=== PATIENT | male | born 1945 | race African-American/Black ===

== ENCOUNTER 2017-06-21 23:49 | Emergency (ER) | payer OTHER ==
[~2017-06-21] VITALS: Ht 180.3 cm; Wt 95.9 kg
[2017-06-22 00:01] VITALS: BP 145/94
== END 2017-06-22 04:07 | disposition left against medical advice (07) ==
LOC: ER 23:49
DX: R06.02 Shortness of breath (principal); Z53.21 Procedure and treatment not carried out due to patient leaving prior to being seen by health care provider

== ENCOUNTER 2018-12-11 22:50 | Emergency (ER) | payer OTHER ==
[~2018-12-11] VITALS: Ht 180.3 cm; Wt 104.0 kg
[2018-12-12] MEDS ORDERED: KETOROLAC 60MG/2ML VIAL IM ONE (01:00)
[2018-12-12 02:03] VITALS: BP 134/88
== END 2018-12-12 02:05 | disposition home or self-care (01) ==
LOC: ER 22:50
DX: M25.512 Pain in left shoulder (principal); M19.90 Unspecified osteoarthritis, unspecified site; E11.9 Type 2 diabetes mellitus without complications; I51.9 Heart disease, unspecified; N40.0 Benign prostatic hyperplasia without lower urinary tract symptoms; F17.210 Nicotine dependence, cigarettes, uncomplicated; Z71.6 Tobacco abuse counseling
CPT/HCPCS: 73030; 93005; 96372; 99283; 99406; J1885

== ENCOUNTER 2021-03-15 16:15 | Emergency (ER) | payer BC, OTHER ==
[~2021-03-15] VITALS: Ht 182.9 cm; Wt 100.0 kg
[2021-03-15 17:38] LABS: BASOPHILS % 0.5 % (0.0-2.0); EOSINOPHILS % 0.1 % (0.0-5.0); HEMATOCRIT. 43.8 % (42.0-52.0); HEMOGLOBIN. 15.3 g/dL (14.0-18.0); LYMPHOCYTES % 13.5 % (20.0-50.0); MEAN CORPUSCULAR HEMOGLOBIN 31.6 pg (28.0-32.0); MEAN CORPUSCULAR VOLUME 90.6 fL (80.0-94.0); MEAN PLATELET VOLUME 9.7 fl (7.4-10.4); MONOCYTES % 8.5 % (2.0-8.0); NEUTROPHILS % 77.4 % (40.0-76.0); PLATELET 114 x1000/uL (130-400); RED BLOOD CELL COUNT 4.84 mill/uL (4.7-6.1); RED CELL DISTRIBUTION WIDTH 13.3 % (11.6-14.6)
[2021-03-15 17:44] LABS: CHLORIDE 103 mEq/L (98-107)
[2021-03-15] MEDS ORDERED: MORPHINE SULFATE 4 MG/ML CPJ (NOT FOR IM USE) IV ONE (19:00)
[2021-03-15 22:40] VITALS: BP 144/90
== END 2021-03-15 22:55 | disposition short-term general hospital (02) ==
LOC: ER 16:15
DX: R07.89 Other chest pain (principal); R51.9 Headache, unspecified; M54.9 Dorsalgia, unspecified
CPT/HCPCS: 36415; 70450; 71045; 72125; 72131; 80053; 82962; 83880; 84484; 85025; 93005; 99285; J2270

== ENCOUNTER 2021-05-18 12:47 | Emergency (ER) | payer OTHER ==
[~2021-05-18] VITALS: Ht 177.8 cm; Wt 87.0 kg
[~2021-05-18 12:47] MED LIST: FURO-151 MT; LEVO500T89 MT
[2021-05-18 17:13] LABS: BASOPHILS % 0.7 % (0.0-2.0); EOSINOPHILS % 1.9 % (0.0-5.0); HEMATOCRIT. 33.8 % (42.0-52.0); HEMOGLOBIN. 11.4 g/dL (14.0-18.0); LYMPHOCYTES % 36.5 % (20.0-50.0); MEAN CORPUSCULAR HEMOGLOBIN 31.2 pg (28.0-32.0); MEAN CORPUSCULAR VOLUME 92.3 fL (80.0-94.0); MEAN PLATELET VOLUME 8.3 fl (7.4-10.4); NEUTROPHILS % 48.9 % (40.0-76.0); PLATELET 102 x1000/uL (130-400); RED BLOOD CELL COUNT 3.66 mill/uL (4.7-6.1); RED CELL DISTRIBUTION WIDTH 14.6 % (11.6-14.6)
[2021-05-18 17:20] LABS: CHLORIDE 105 mEq/L (98-107)
[2021-05-18] MEDS ORDERED: FUROSEMIDE 40MG/4ML VIAL IVP NR (19:30)
[2021-05-18] MEDS ORDERED: ACETAMINOPHEN 500MG TABLET PO ONE (22:15)
[2021-05-18 22:31] VITALS: BP 127/81
== END 2021-05-18 22:31 | disposition short-term general hospital (02) ==
LOC: ER 12:47 → EDBEDREQTM 17:19 → ER 22:31 → CANBEDREQ 05-19 01:22
DX: I11.0 Hypertensive heart disease with heart failure (principal); I50.9 Heart failure, unspecified; R22.43 Localized swelling, mass and lump, lower limb, bilateral; E11.9 Type 2 diabetes mellitus without complications; I25.10 Atherosclerotic heart disease of native coronary artery without angina pectoris; N40.0 Benign prostatic hyperplasia without lower urinary tract symptoms; Z95.2 Presence of prosthetic heart valve; Z95.1 Presence of aortocoronary bypass graft
CPT/HCPCS: 36415; 71045; 80053; 83880; 84484; 85025; 93005; 93970; 96374; 99285; J1940

== ENCOUNTER 2022-02-06 08:23 | Inpatient (IN) | payer OTHER ==
[~2022-02-06] VITALS: Ht 177.8 cm; Wt 87.5 kg
[~2022-02-06 08:23] MED LIST changes: -LEVO500T89 MT; +LEVO500T90 MT
[2022-02-06 09:47] LABS: BASOPHILS % 0.4 % (0.0-2.0); EOSINOPHILS % 1.3 % (0.0-5.0); HEMATOCRIT. 36.5 % (42.0-52.0); HEMOGLOBIN. 12.5 g/dL (14.0-18.0); LYMPHOCYTES % 22.2 % (20.0-50.0); MEAN CORPUSCULAR HEMOGLOBIN 31.2 pg (28.0-32.0); MEAN CORPUSCULAR VOLUME 91.3 fL (80.0-94.0); MEAN PLATELET VOLUME 8.5 fl (7.4-10.4); NEUTROPHILS % 66.1 % (40.0-76.0); PLATELET 138 x1000/uL (130-400); RED CELL DISTRIBUTION WIDTH 13.3 % (11.6-14.6)
[2022-02-06 09:49] LABS: CHLORIDE 101 mEq/L (98-107); PROTHROMBIN TIME 11.2 sec (9.6-11.0)
[2022-02-06 11:17] LABS: CLARITY URINE CLEAR (CLEAR); COLOR URINE YELLOW (YELLOW); KETONES URINE TRACE (NEGATIVE); LEUKOCYTE ESTERASE URINE TRACE (NEGATIVE); NITRITE URINE NEGATIVE (NEGATIVE); OCCULT BLOOD URINE NEGATIVE (NEGATIVE); PH URINE 6.5 (4.5-8.0); PROTEIN URINE TRACE (NEGATIVE); SPECIFIC GRAVITY URINE 1.022 (1.005-1.030)
[2022-02-06 16:38] VITALS: BP 139/78
[2022-02-06] MEDS ORDERED: ACETAMINOPHEN 325MG TABLET PO PRN (17:30)
[2022-02-06] MEDS ORDERED: ONDANSETRON HCL 4MG/2ML INJ IV PRN (17:30)
[2022-02-06] MEDS ORDERED: IPRATROPIUM/ALBUTEROL 0.5-3(2.5)MG/3ML NEB HHN PRN (17:30)
[2022-02-06] MEDS ORDERED: NALOXONE HCL 0.4MG/ML VIAL IV PRN (17:45)
[2022-02-06] MEDS ORDERED: GABA-529 PO (19:58)
[2022-02-06] MEDS ORDERED: FAMO20TA8 PO (19:58)
[2022-02-06] MEDS ORDERED: INSU100I13 SQ (19:58)
[2022-02-06] MEDS ORDERED: TAMS-11 PO (19:58)
[2022-02-06] MEDS ORDERED: CARB-299 PO (19:58)
[2022-02-06] MEDS ORDERED: HYDR-4001 PO (19:58)
[2022-02-06] MEDS ORDERED: METF-414 PO (19:58)
[2022-02-06] MEDS ORDERED: POTA-79 PO (19:58)
[2022-02-06 20:00] VITALS: BP 112/59
[2022-02-06] MEDS ORDERED: DEXTROSE 50% WATER 50ML SYRINGE IV PRN (20:15)
[2022-02-06] MEDS: TAMSULOSIN HCL 0.4MG SR CAPSULE PO SCH (21:12)
[2022-02-06] MEDS: HYDROCODONE/ACETAMINOPHEN 5/325MG TABLET PO PRN (21:13)
[2022-02-06] MEDS: CARBIDOPA/LEVODOPA 25/100MG TABLET PO SCH (21:15)
[2022-02-06] MEDS: BLOOD SUGAR DIAGNOSTIC STRIP TEST SCH (21:15)
[2022-02-06] MEDS: INSULIN LISPRO 100 UNITS/ML SUBCUT SCH (21:15)
[2022-02-07] VITALS: BP 91/54
[2022-02-07 04:00] VITALS: BP 127/78
[2022-02-07] MEDS: INSULIN LISPRO 100 UNITS/ML SUBCUT SCH ×4 (06:16→20:51)
[2022-02-07] MEDS: BLOOD SUGAR DIAGNOSTIC STRIP TEST SCH ×4 (06:17→20:52)
[2022-02-07 06:30] LABS: BASOPHILS % 0.5 % (0.0-2.0); EOSINOPHILS % 2.5 % (0.0-5.0); HEMATOCRIT. 33.1 % (42.0-52.0); HEMOGLOBIN. 11.9 g/dL (14.0-18.0); LYMPHOCYTES % 26.4 % (20.0-50.0); MEAN CORPUSCULAR HEMOGLOBIN 31.6 pg (28.0-32.0); MEAN CORPUSCULAR VOLUME 88.1 fL (80.0-94.0); MONOCYTES % 12.1 % (2.0-8.0); NEUTROPHILS % 58.5 % (40.0-76.0); PLATELET 127 x1000/uL (130-400); RED BLOOD CELL COUNT 3.75 mill/uL (4.7-6.1); RED CELL DISTRIBUTION WIDTH 13.4 % (11.6-14.6)
[2022-02-07 06:31] LABS: CHLORIDE 104 mEq/L (98-107)
[2022-02-07 06:52] LABS: CREATINE KINASE 86 IU/L (39-308); HDL CHOLESTEROL 31 mg/dL (40-59); LDL CHOLESTEROL 90 mg/dL (5-100); T4 FREE 0.91 ng/dL (0.76-1.46)
[2022-02-07 08:00] VITALS: BP 102/63
[2022-02-07] MEDS ORDERED: MEDICATION NOT ON FORMULARY EA (Potassium Chloride 20 MEQ) PO SCH (09:00)
[2022-02-07] MEDS: POTASSIUM CHLORIDE 20MEQ TABLET SR PO SCH (09:22)
[2022-02-07] MEDS: GABAPENTIN 100MG CAPSULE PO SCH ×2 (09:22→16:33)
[2022-02-07] MEDS: FAMOTIDINE 20MG TABLET PO SCH ×2 (09:22→16:35)
[2022-02-07] MEDS: CARBIDOPA/LEVODOPA 25/100MG TABLET PO SCH ×4 (09:22→16:33)
[2022-02-07] MEDS: FUROSEMIDE 40MG TABLET PO SCH (10:58)
[2022-02-07] MEDS ORDERED: CEFTRIAXONE 1 G PREMIX 50 ML IV SCH (11:00)
[2022-02-07 12:00] VITALS: BP 112/68
[2022-02-07] MEDS: CEFTRIAXONE 1,000 MG in DEXTROSE 5% WATER 50 ML IV SCH (13:06)
[2022-02-07 15:46] VITALS: BP 117/59
[2022-02-07 20:00] VITALS: BP 102/63
[2022-02-07] MEDS: TAMSULOSIN HCL 0.4MG SR CAPSULE PO SCH (20:51)
[2022-02-07] MEDS: HYDROCODONE/ACETAMINOPHEN 5/325MG TABLET PO PRN (20:52)
[2022-02-08] VITALS: BP 124/58
[2022-02-08 04:00] VITALS: BP 94/53
[2022-02-08] MEDS: BLOOD SUGAR DIAGNOSTIC STRIP TEST SCH ×3 (06:07→16:57)
[2022-02-08] MEDS: INSULIN LISPRO 100 UNITS/ML SUBCUT SCH ×3 (06:07→16:57)
[2022-02-08] MEDS: HYDROCODONE/ACETAMINOPHEN 5/325MG TABLET PO PRN (06:17)
[2022-02-08 08:00] VITALS: BP 109/62
[2022-02-08] MEDS: POTASSIUM CHLORIDE 20MEQ TABLET SR PO SCH (08:35)
[2022-02-08] MEDS: FUROSEMIDE 40MG TABLET PO SCH (08:35)
[2022-02-08] MEDS: CARBIDOPA/LEVODOPA 25/100MG TABLET PO SCH ×3 (08:36→16:56)
[2022-02-08] MEDS: GABAPENTIN 100MG CAPSULE PO SCH ×2 (08:36→16:56)
[2022-02-08] MEDS: FAMOTIDINE 20MG TABLET PO SCH ×2 (08:36→16:56)
[2022-02-08 11:50] VITALS: BP 121/78
[2022-02-08] MEDS: CEFTRIAXONE 1,000 MG in DEXTROSE 5% WATER 50 ML IV SCH (12:03)
[2022-02-08 16:00] VITALS: BP 98/68
[2022-02-08 18:35] VITALS: BP 98/68
== END 2022-02-08 20:25 | DRG 56 ==
LOC: ER 08:23 → EDBEDREQ 14:45 → ENRESERV 14:49 → CANRESERV 14:49 → ENRESERV 15:07 → 8WST 16:12
PROVIDERS: ADMIT Internal Medicine; ATTEND Internal Medicine
DX: G20 Parkinson's disease (principal); I50.33 Acute on chronic diastolic (congestive) heart failure; N39.0 Urinary tract infection, site not specified; I11.0 Hypertensive heart disease with heart failure; I16.0 Hypertensive urgency; F02.80 Dementia in other diseases classified elsewhere, unspecified severity, without behavioral disturbance, psychotic disturbance, mood disturbance, and anxiety; N40.0 Benign prostatic hyperplasia without lower urinary tract symptoms; E11.9 Type 2 diabetes mellitus without complications; I25.10 Atherosclerotic heart disease of native coronary artery without angina pectoris; Z20.822 Contact with and (suspected) exposure to COVID-19; Z79.899 Other long term (current) drug therapy; Z79.2 Long term (current) use of antibiotics; I25.2 Old myocardial infarction; Z95.1 Presence of aortocoronary bypass graft; Z87.01 Personal history of pneumonia (recurrent); R53.1 Weakness
CPT/HCPCS: 36415; 71045; 74176; 80053; 80061; 81003; 82550; 82962; 83036; 83735; 84439; 84443; 84484; 84550; 85025; 87426; 93005; 97162; 99285; J0696; J1815; J7060

== ENCOUNTER 2022-05-29 13:57 | Emergency (ER) | payer OTHER ==
[~2022-05-29] VITALS: Ht 175.3 cm; Wt 64.0 kg
[~2022-05-29 13:57] MED LIST changes: +CARB-299 PO; +FAMO20TA8 PO; +GABA-529 PO; +HYDR-4001 PO; +INSU100I13 SQ; +LEVO-65 MT; -LEVO500T90 MT; +METF-414 PO; +POTA-79 PO; +TAMS-11 PO
[2022-05-29 16:12] LABS: BASOPHILS % 0.5 % (0.0-2.0); EOSINOPHILS % 1.8 % (0.0-5.0); HEMATOCRIT. 39.7 % (42.0-52.0); HEMOGLOBIN. 13.6 g/dL (14.0-18.0); MEAN CORPUSCULAR HEMOGLOBIN 30.8 pg (28.0-32.0); MEAN CORPUSCULAR VOLUME 90.1 fL (80.0-94.0); MEAN PLATELET VOLUME 8.4 fl (7.4-10.4); MONOCYTES % 10.4 % (2.0-8.0); NEUTROPHILS % 61.3 % (40.0-76.0); PLATELET 192 x1000/uL (130-400); RED BLOOD CELL COUNT 4.41 mill/uL (4.7-6.1); RED CELL DISTRIBUTION WIDTH 13.5 % (11.6-14.6)
[2022-05-29 16:18] LABS: CHLORIDE 100 mEq/L (98-107)
[2022-05-30] MEDS ORDERED: IBUPROFEN 400MG TABLET PO ONE
[2022-05-30 10:04] VITALS: BP 97/72
[2022-05-30] MEDS ORDERED: ACETAMINOPHEN 325MG TABLET PO ONE ×2 (13:00)
== END 2022-05-30 15:22 | disposition home or self-care (01) ==
LOC: ER 13:57
DX: M79.604 Pain in right leg (principal); M79.605 Pain in left leg; I50.9 Heart failure, unspecified; E11.9 Type 2 diabetes mellitus without complications; Z87.01 Personal history of pneumonia (recurrent); Z79.899 Other long term (current) drug therapy
CPT/HCPCS: 36415; 71045; 80053; 83880; 84484; 85025; 93005; 93970; 99285

== ENCOUNTER 2022-07-07 17:55 | Inpatient (IN) | payer MEDICARE, MEDICAID, OTHER ==
[~2022-07-07] VITALS: Ht 180.3 cm; Wt 84.2 kg
[~2022-07-07 17:55] MED LIST changes: +SULF-13 MT
[2022-07-07 22:55] LABS: BASOPHILS % 0.7 % (0.0-2.0); EOSINOPHILS % 1.9 % (0.0-5.0); HEMATOCRIT. 36.6 % (42.0-52.0); HEMOGLOBIN. 12.6 g/dL (14.0-18.0); LYMPHOCYTES % 24.3 % (20.0-50.0); MEAN CORPUSCULAR HEMOGLOBIN 30.9 pg (28.0-32.0); MEAN CORPUSCULAR VOLUME 89.8 fL (80.0-94.0); MEAN PLATELET VOLUME 6.9 fl (7.4-10.4); NEUTROPHILS % 66.1 % (40.0-76.0); PLATELET 237 x1000/uL (130-400); RED BLOOD CELL COUNT 4.07 mill/uL (4.7-6.1); RED CELL DISTRIBUTION WIDTH 13.5 % (11.6-14.6)
[2022-07-07 23:02] LABS: CHLORIDE 100 mEq/L (98-107)
[2022-07-08 02:00] LABS: CLARITY URINE CLEAR (CLEAR); COLOR URINE YELLOW (YELLOW); KETONES URINE NEGATIVE (NEGATIVE); LEUKOCYTE ESTERASE URINE TRACE (NEGATIVE); NITRITE URINE NEGATIVE (NEGATIVE); OCCULT BLOOD URINE NEGATIVE (NEGATIVE); PH URINE 5.5 (4.5-8.0); PROTEIN URINE NEGATIVE (NEGATIVE)
[2022-07-08] MEDS ORDERED: CEFTRIAXONE 1 G PREMIX 50 ML IV ONE (04:45)
[2022-07-08] MEDS ORDERED: HYDROCODONE/ACETAMINOPHEN 5/325MG TABLET PO ONE (12:45)
[2022-07-08] MEDS ORDERED: ONDANSETRON HCL 4MG/2ML INJ IV PRN (18:00)
[2022-07-08] MEDS ORDERED: CEFTRIAXONE 1 G PREMIX 50 ML IV SCH (18:00)
[2022-07-08] MEDS ORDERED: CLONIDINE 0.1MG TABLET PO PRN (18:00)
[2022-07-08] MEDS ORDERED: IPRATROPIUM/ALBUTEROL 0.5-3(2.5)MG/3ML NEB NEB PRN (18:00)
[2022-07-08 20:00] VITALS: BP 140/86
[2022-07-08] MEDS ORDERED: DEXTROSE 50% WATER 50ML SYRINGE IV PRN (20:45)
[2022-07-08] MEDS: BLOOD SUGAR DIAGNOSTIC STRIP TEST SCH (20:49)
[2022-07-08 21:41] VITALS: BP 113/74
[2022-07-08 22:06] VITALS: BP 96/71
[2022-07-08] MEDS: ACETAMINOPHEN 325MG TABLET PO PRN (22:20)
[2022-07-08] MEDS: ENOXAPARIN 40MG/0.4ML SYR SUBCUT SCH (22:21)
[2022-07-08] MEDS: INSULIN LISPRO 100 UNITS/ML SUBCUT SCH (22:21)
[2022-07-08 23:41] VITALS: BP 119/72
[2022-07-09] VITALS (10 sets, daily range): BP systolic 90–169; BP diastolic 48–98
[2022-07-09 00:22] LABS: CREATINE KINASE MB FRACTION 2.8 ng/mL (0.5-3.6)
[2022-07-09] MEDS ORDERED: FURO-152 PO (03:10)
[2022-07-09] MEDS: CEFTRIAXONE 1,000 MG in DEXTROSE 5% WATER 50 ML IV SCH (05:24)
[2022-07-09] MEDS: PANTOPRAZOLE 40MG DR TABLET PO SCH (06:37)
[2022-07-09] MEDS: BLOOD SUGAR DIAGNOSTIC STRIP TEST SCH ×4 (06:39→21:10)
[2022-07-09] MEDS: INSULIN LISPRO 100 UNITS/ML SUBCUT SCH ×4 (07:20→21:18)
[2022-07-09 08:04] LABS: BASOPHILS % 0.9 % (0.0-2.0); HEMATOCRIT. 37.6 % (42.0-52.0); MEAN CORPUSCULAR VOLUME 89.6 fL (80.0-94.0); MEAN PLATELET VOLUME 7.5 fl (7.4-10.4); MONOCYTES % 7.4 % (2.0-8.0); NEUTROPHILS % 58.7 % (40.0-76.0); PLATELET 205 x1000/uL (130-400); RED BLOOD CELL COUNT 4.19 mill/uL (4.7-6.1); RED CELL DISTRIBUTION WIDTH 13.6 % (11.6-14.6)
[2022-07-09 08:07] LABS: CHLORIDE 100 mEq/L (98-107)
[2022-07-09 08:16] LABS: CREATINE KINASE 451 IU/L (39-308); CREATINE KINASE MB FRACTION 15.5 ng/mL (0.5-3.6)
[2022-07-09] MEDS: ACETAMINOPHEN 325MG TABLET PO PRN (15:50)
[2022-07-09] MEDS: ENOXAPARIN 40MG/0.4ML SYR SUBCUT SCH (21:08)
[2022-07-10] VITALS (7 sets, daily range): BP systolic 94–185; BP diastolic 58–110
[2022-07-10] MEDS: CEFTRIAXONE 1,000 MG in DEXTROSE 5% WATER 50 ML IV SCH (05:18)
[2022-07-10] MEDS: PANTOPRAZOLE 40MG DR TABLET PO SCH (06:17)
[2022-07-10] MEDS: BLOOD SUGAR DIAGNOSTIC STRIP TEST SCH ×4 (06:18→21:07)
[2022-07-10] MEDS: INSULIN LISPRO 100 UNITS/ML SUBCUT SCH ×4 (07:20→21:08)
[2022-07-10] MEDS: ACETAMINOPHEN 325MG TABLET PO PRN (18:58)
[2022-07-10] MEDS ORDERED: NALOXONE HCL 0.4MG/ML VIAL IV PRN (21:00)
[2022-07-10] MEDS: ENOXAPARIN 40MG/0.4ML SYR SUBCUT SCH (21:07)
[2022-07-10] MEDS: MORPHINE SULFATE 2 MG/ML CPJ (NOT FOR IM USE) IV PRN (21:18)
[2022-07-11] VITALS: BP 113/66
[2022-07-11 04:00] VITALS: BP 145/90
[2022-07-11] MEDS: CEFTRIAXONE 1,000 MG in DEXTROSE 5% WATER 50 ML IV SCH (05:59)
[2022-07-11] MEDS: BLOOD SUGAR DIAGNOSTIC STRIP TEST SCH (06:57)
[2022-07-11] MEDS: INSULIN LISPRO 100 UNITS/ML SUBCUT SCH (07:20)
[2022-07-11 08:00] VITALS: BP 118/72
[2022-07-11] MEDS ORDERED: FAMOTIDINE 20MG TABLET PO SCH (09:00)
[2022-07-11 09:40] VITALS: BP 118/72
[2022-07-11 11:25] VITALS: BP 129/70
[2022-07-11] MEDS: MORPHINE SULFATE 2 MG/ML CPJ (NOT FOR IM USE) IV PRN (11:25)
== END 2022-07-11 12:05 | disposition home health service (06) | DRG 206 ==
LOC: ER 17:55 → 3WST 07-08 04:35 → CANRESERV 07-08 06:49 → ENRESERV 07-08 06:49 → EDBEDREQSVC 07-08 07:54 → ER 07-08 18:49
PROVIDERS: ADMIT Internal Medicine; ATTEND Internal Medicine
DX: M94.0 Chondrocostal junction syndrome [Tietze] (principal); N39.0 Urinary tract infection, site not specified; I50.30 Unspecified diastolic (congestive) heart failure; I11.0 Hypertensive heart disease with heart failure; G20 Parkinson's disease; E11.9 Type 2 diabetes mellitus without complications; N43.3 Hydrocele, unspecified; N40.0 Benign prostatic hyperplasia without lower urinary tract symptoms; I35.0 Nonrheumatic aortic (valve) stenosis; I25.10 Atherosclerotic heart disease of native coronary artery without angina pectoris; F14.10 Cocaine abuse, uncomplicated; Z79.899 Other long term (current) drug therapy; Z74.01 Bed confinement status; Z95.2 Presence of prosthetic heart valve; Z95.1 Presence of aortocoronary bypass graft; Z87.891 Personal history of nicotine dependence; Z86.73 Personal history of transient ischemic attack (TIA), and cerebral infarction without residual deficits
CPT/HCPCS: 36415; 71045; 74176; 80048; 80053; 80061; 81003; 82550; 82553; 82962; 83735; 83880; 84484; 85025; 93005; 96365; 99285; J0696; J1650; J1815; J2270; J7060

== ENCOUNTER 2022-07-13 10:47 | Inpatient (IN) | payer MEDICARE, MEDICAID ==
[~2022-07-13] VITALS: Ht 182.9 cm; Wt 74.4 kg
[~2022-07-13 10:47] MED LIST changes: +FURO-152 PO
[2022-07-13] MEDS ORDERED: SODIUM CHLORIDE 0.9% 1,000 ML IV ONE (12:00)
[2022-07-13 12:27] LABS: BASOPHILS % 1.3 % (0.0-2.0); EOSINOPHILS % 4.7 % (0.0-5.0); HEMATOCRIT. 35.2 % (42.0-52.0); HEMOGLOBIN. 12.4 g/dL (14.0-18.0); LYMPHOCYTES % 32.6 % (20.0-50.0); MEAN CORPUSCULAR HEMOGLOBIN 31.1 pg (28.0-32.0); MEAN CORPUSCULAR VOLUME 88.6 fL (80.0-94.0); MEAN PLATELET VOLUME 8.1 fl (7.4-10.4); MONOCYTES % 9.8 % (2.0-8.0); NEUTROPHILS % 51.6 % (40.0-76.0); PLATELET 203 x1000/uL (130-400); RED BLOOD CELL COUNT 3.97 mill/uL (4.7-6.1); RED CELL DISTRIBUTION WIDTH 13.4 % (11.6-14.6)
[2022-07-13 12:32] LABS: CHLORIDE 102 mEq/L (98-107)
[2022-07-13] MEDS ORDERED: MORPHINE SULFATE 2 MG/ML CPJ (NOT FOR IM USE) IV ONE (13:00)
[2022-07-13 14:24] LABS: D-DIMER 1.04 mg/L FEU (<0.50); INR 1.1; PARTIAL THROMBOPLASTIN TIME 23.4 sec (23.4-31.0); PROTHROMBIN TIME 11.3 sec (9.6-11.0)
[2022-07-13] MEDS ORDERED: IOHEXOL-350 100 ML BOTTLE ONE (17:32)
[2022-07-14] VITALS (7 sets, daily range): BP systolic 93–170; BP diastolic 61–99
[2022-07-14] MEDS: HYDROCODONE/ACETAMINOPHEN 5/325MG TABLET PO PRN ×3 (00:44→21:24)
[2022-07-14 08:14] LABS: BASOPHILS % 1.2 % (0.0-2.0); HEMATOCRIT. 33.6 % (42.0-52.0); HEMOGLOBIN. 11.8 g/dL (14.0-18.0); LYMPHOCYTES % 32.5 % (20.0-50.0); MEAN CORPUSCULAR HEMOGLOBIN 31.1 pg (28.0-32.0); MEAN CORPUSCULAR VOLUME 88.5 fL (80.0-94.0); MEAN PLATELET VOLUME 8.4 fl (7.4-10.4); MONOCYTES % 10.2 % (2.0-8.0); NEUTROPHILS % 45.1 % (40.0-76.0); PLATELET 184 x1000/uL (130-400); RED CELL DISTRIBUTION WIDTH 13.3 % (11.6-14.6)
[2022-07-14] MEDS: ENOXAPARIN 40MG/0.4ML SYR SUBCUT SCH (08:36)
[2022-07-14] MEDS: PANTOPRAZOLE SODIUM 40 MG/VIAL IV SCH (08:37)
[2022-07-14] MEDS: FUROSEMIDE 40MG/4ML VIAL IVP SCH (09:00)
[2022-07-14] MEDS ORDERED: NALOXONE HCL 0.4MG/ML VIAL IV PRN (17:15)
[2022-07-15] VITALS: BP 110/65
[2022-07-15 04:00] VITALS: BP 131/78
[2022-07-15 08:00] VITALS: BP 115/68
[2022-07-15] MEDS: ENOXAPARIN 40MG/0.4ML SYR SUBCUT SCH (08:26)
[2022-07-15] MEDS: PANTOPRAZOLE SODIUM 40 MG/VIAL IV SCH (08:26)
[2022-07-15] MEDS: FUROSEMIDE 40MG/4ML VIAL IVP SCH (08:26)
[2022-07-15] MEDS: HYDROCODONE/ACETAMINOPHEN 5/325MG TABLET PO PRN ×2 (08:39→16:01)
[2022-07-15 12:00] VITALS: BP 137/78
[2022-07-15 16:00] VITALS: BP 127/85
[2022-07-15 16:01] VITALS: BP 127/85
[2022-07-16] MEDS ORDERED: FAMOTIDINE 20MG TABLET PO SCH (09:00)
== END 2022-07-15 17:50 | DRG 205 ==
LOC: ER 10:47 → 7WST 15:04 → ENRESERV 22:19
PROVIDERS: ADMIT Internal Medicine; ATTEND Internal Medicine
DX: M94.0 Chondrocostal junction syndrome [Tietze] (principal); I50.33 Acute on chronic diastolic (congestive) heart failure; N39.0 Urinary tract infection, site not specified; G82.20 Paraplegia, unspecified; I11.0 Hypertensive heart disease with heart failure; D64.9 Anemia, unspecified; Z20.822 Contact with and (suspected) exposure to COVID-19; D72.819 Decreased white blood cell count, unspecified; G20 Parkinson's disease; E11.9 Type 2 diabetes mellitus without complications; I25.10 Atherosclerotic heart disease of native coronary artery without angina pectoris; F17.200 Nicotine dependence, unspecified, uncomplicated; N40.0 Benign prostatic hyperplasia without lower urinary tract symptoms; Z95.1 Presence of aortocoronary bypass graft; Z86.73 Personal history of transient ischemic attack (TIA), and cerebral infarction without residual deficits; Z95.2 Presence of prosthetic heart valve
CPT/HCPCS: 36415; 71045; 71275; 80053; 83880; 84484; 85025; 85379; 87426; 93005; 97162; 97166; 99285; C9113; J1650; J1940; J2270; J7030; Q9967; A4315

== ENCOUNTER 2022-09-23 15:37 | Inpatient (IN) | payer MEDICARE, MEDICAID ==
[~2022-09-23] VITALS: Ht 185.4 cm; Wt 78.5 kg
[~2022-09-23 15:37] MED LIST changes: -CARB-299 PO; +CARB-324 PO; -FAMO20TA8 PO; -FURO-151 MT; -LEVO-65 MT; -SULF-13 MT
[2022-09-23] MEDS ORDERED: HYDROCODONE/ACETAMINOPHEN 5/325MG TABLET PO STA (16:19)
[2022-09-23] MEDS ORDERED: NITROGLYCERIN OINT 1GM/INCH UDPKT TD ONE (16:30)
[2022-09-23] MEDS ORDERED: ASPIRIN 81MG TABLET PO ONE (16:30)
[2022-09-23 17:47] LABS: BASOPHILS % 0.3 % (0.0-2.0); EOSINOPHILS % 0.2 % (0.0-5.0); HEMATOCRIT. 28.5 % (42.0-52.0); HEMOGLOBIN. 9.7 g/dL (14.0-18.0); MEAN CORPUSCULAR HEMOGLOBIN 29.2 pg (28.0-32.0); MEAN CORPUSCULAR VOLUME 85.4 fL (80.0-94.0); MEAN PLATELET VOLUME 7.4 fl (7.4-10.4); MONOCYTES % 8.1 % (2.0-8.0); NEUTROPHILS % 83.4 % (40.0-76.0); PLATELET 266 x1000/uL (130-400); RED BLOOD CELL COUNT 3.33 mill/uL (4.7-6.1); RED CELL DISTRIBUTION WIDTH 13.7 % (11.6-14.6)
[2022-09-23 17:48] LABS: CLARITY URINE CLEAR (CLEAR); COLOR URINE YELLOW (YELLOW); KETONES URINE TRACE (NEGATIVE); LEUKOCYTE ESTERASE URINE NEGATIVE (NEGATIVE); NITRITE URINE NEGATIVE (NEGATIVE); OCCULT BLOOD URINE NEGATIVE (NEGATIVE); PH URINE 5.5 (4.5-8.0); PROTEIN URINE NEGATIVE (NEGATIVE); SPECIFIC GRAVITY URINE 1.014 (1.005-1.030)
[2022-09-23 17:53] LABS: CHLORIDE 98 mEq/L (98-107)
[2022-09-23 17:56] LABS: INR 1.1; PROTHROMBIN TIME 12.1 sec (9.6-11.0)
[2022-09-23] MEDS ORDERED: SODIUM CHLORIDE 0.9% 1,000 ML IV ONE ×2 (18:00→19:00)
[2022-09-23] MEDS ORDERED: MIDODRINE HCL 5MG TABLET PO ONE (19:15)
[2022-09-23 23:37] VITALS: BP 88/57
[2022-09-24] VITALS (13 sets, daily range): BP systolic 85–143; BP diastolic 54–101
[2022-09-24] MEDS ORDERED: CEFTRIAXONE 1GM PREMIX 50 ML IV SCH
[2022-09-24] MEDS ORDERED: DEXTROSE 50% WATER 50ML SYRINGE IV PRN
[2022-09-24] MEDS: SODIUM CHLORIDE 0.9% 1,000 ML IV NR ×2 (00:07→08:24)
[2022-09-24] MEDS ORDERED: CEFEPIME 1,000 MG in DEXTROSE 5% WATER 50 ML IV SCH (02:00)
[2022-09-24] MEDS: HYDROCODONE/ACETAMINOPHEN 5/325MG TABLET PO PRN ×2 (02:23→22:07)
[2022-09-24 06:12] LABS: HEMATOCRIT 24.5 % (42.0-52.0); HEMOGLOBIN 8.5 g/dL (14.0-18.0); MEAN CORPUSCULAR HEMOGLOBIN 29.7 pg (28.0-32.0); MEAN CORPUSCULAR VOLUME 85.2 fL (80.0-94.0); PLATELET 219 x1000/uL (130-400); RED BLOOD CELL COUNT 2.87 mill/uL (4.7-6.1); RED CELL DISTRIBUTION WIDTH 13.7 % (11.6-14.6)
[2022-09-24] MEDS: BLOOD SUGAR DIAGNOSTIC STRIP TEST SCH ×4 (06:12→21:44)
[2022-09-24 06:20] LABS: CHLORIDE 104 mEq/L (98-107)
[2022-09-24] MEDS: INSULIN LISPRO 100 UNITS/ML SUBCUT SCH ×4 (06:20→21:45)
[2022-09-24] MEDS: GABAPENTIN 100MG CAPSULE PO SCH ×3 (06:20→21:44)
[2022-09-24] MEDS: CARBIDOPA/LEVODOPA 25/100MG TABLET PO SCH ×3 (06:20→21:44)
[2022-09-24 10:43] LABS: CLARITY URINE CLEAR (CLEAR); COLOR URINE YELLOW (YELLOW); KETONES URINE NEGATIVE (NEGATIVE); LEUKOCYTE ESTERASE URINE 1+ (NEGATIVE); NITRITE URINE NEGATIVE (NEGATIVE); OCCULT BLOOD URINE NEGATIVE (NEGATIVE); PH URINE 5.5 (4.5-8.0); PROTEIN URINE TRACE (NEGATIVE); SPECIFIC GRAVITY URINE 1.018 (1.005-1.030)
[2022-09-24 10:58] LABS: *AMPHETAMINES SCREEN URINE NEGATIVE (NEGATIVE); *BARBITURATES SCREEN URINE NEGATIVE (NEGATIVE); *BENZODIAZEPINES SCREEN URINE NEGATIVE (NEGATIVE); *COCAINE SCREEN URINE NEGATIVE (NEGATIVE); CANNABINOID URINE SCREEN NEGATIVE (NEGATIVE); METHADONE URINE SCREEN NEGATIVE (NEGATIVE); OPIATES URINE SCREEN PRESUMTIVE POSITIVE (NEGATIVE); PHENCYCLIDINE URINE SCREEN NEGATIVE (NEGATIVE)
[2022-09-24] MEDS: CEFEPIME 1GM PREMIX 50 ML IV SCH ×2 (11:24→22:36)
[2022-09-24] MEDS ORDERED: NALOXONE HCL 0.4MG/ML VIAL IV PRN (14:30)
[2022-09-24] MEDS: CYCLOBENZAPRINE 10MG TABLET PO PRN (14:32)
[2022-09-24] MEDS ORDERED: VANCOMYCIN 1500MG in DEXTROSE 5% WATER 250ML IV NR (15:00)
[2022-09-25] VITALS (11 sets, daily range): BP systolic 90–128; BP diastolic 56–94
[2022-09-25] MEDS: CYCLOBENZAPRINE 10MG TABLET PO PRN (03:16)
[2022-09-25] MEDS: VANCOMYCIN 1G PREMIX 200 ML IV SCH ×2 (03:16→16:10)
[2022-09-25] MEDS ORDERED: MAGNESIUM/ALUMINUM HYDROXIDE/SIMETHICONE 30ML UDC PO NR (06:00)
[2022-09-25] MEDS: BLOOD SUGAR DIAGNOSTIC STRIP TEST SCH ×4 (06:22→21:00)
[2022-09-25] MEDS: CARBIDOPA/LEVODOPA 25/100MG TABLET PO SCH ×3 (06:23→22:56)
[2022-09-25] MEDS: INSULIN LISPRO 100 UNITS/ML SUBCUT SCH ×4 (06:23→21:00)
[2022-09-25] MEDS: GABAPENTIN 100MG CAPSULE PO SCH ×3 (06:23→22:56)
[2022-09-25] MEDS: PANTOPRAZOLE SODIUM 40 MG/VIAL IV SCH (06:23)
[2022-09-25] MEDS: CEFEPIME 1GM PREMIX 50 ML IV SCH ×2 (12:43→23:30)
[2022-09-25] MEDS: LACTULOSE 20G/30ML UDC PO PRN (16:10)
[2022-09-25] MEDS: ENOXAPARIN 40MG/0.4ML SYR SUBCUT SCH (17:00)
[2022-09-25] MEDS: TAMSULOSIN HCL 0.4MG SR CAPSULE PO SCH (19:12)
[2022-09-26] VITALS: BP 94/58
[2022-09-26] MEDS: VANCOMYCIN 1G PREMIX 200 ML IV SCH ×2 (03:52→16:42)
[2022-09-26 04:00] VITALS: BP 90/51
[2022-09-26] MEDS: CARBIDOPA/LEVODOPA 25/100MG TABLET PO SCH ×3 (06:40→21:18)
[2022-09-26] MEDS: BLOOD SUGAR DIAGNOSTIC STRIP TEST SCH ×4 (06:40→21:32)
[2022-09-26] MEDS: GABAPENTIN 100MG CAPSULE PO SCH ×3 (06:40→21:18)
[2022-09-26] MEDS: INSULIN LISPRO 100 UNITS/ML SUBCUT SCH ×4 (06:41→21:29)
[2022-09-26 08:00] VITALS: BP 100/57
[2022-09-26] MEDS: PANTOPRAZOLE SODIUM 40 MG/VIAL IV SCH (09:14)
[2022-09-26] MEDS: TAMSULOSIN HCL 0.4MG SR CAPSULE PO SCH (09:14)
[2022-09-26 12:00] VITALS: BP 90/50
[2022-09-26] MEDS: CEFEPIME 1GM PREMIX 50 ML IV SCH (12:34)
[2022-09-26 16:00] VITALS: BP 107/57
[2022-09-26] MEDS: TRAMADOL 50MG TABLET PO PRN (16:58)
[2022-09-26] MEDS: ENOXAPARIN 40MG/0.4ML SYR SUBCUT SCH (16:59)
[2022-09-26 20:00] VITALS: BP 97/56
[2022-09-26 20:32] LABS: BASOPHILS % 0.3 % (0.0-2.0); EOSINOPHILS % 1.1 % (0.0-5.0); HEMOGLOBIN. 8.6 g/dL (14.0-18.0); LYMPHOCYTES % 13.8 % (20.0-50.0); MEAN CORPUSCULAR HEMOGLOBIN 29.3 pg (28.0-32.0); MEAN CORPUSCULAR VOLUME 85.4 fL (80.0-94.0); MONOCYTES % 10.2 % (2.0-8.0); NEUTROPHILS % 74.6 % (40.0-76.0); PLATELET 244 x1000/uL (130-400); RED BLOOD CELL COUNT 2.93 mill/uL (4.7-6.1); RED CELL DISTRIBUTION WIDTH 13.7 % (11.6-14.6)
[2022-09-26 20:41] LABS: CHLORIDE 101 mEq/L (98-107)
[2022-09-27] VITALS (7 sets, daily range): BP systolic 92–115; BP diastolic 53–71
[2022-09-27] MEDS: VANCOMYCIN 1G PREMIX 200 ML IV SCH (02:43)
[2022-09-27] MEDS: LACTULOSE 20G/30ML UDC PO PRN (05:19)
[2022-09-27] MEDS: CARBIDOPA/LEVODOPA 25/100MG TABLET PO SCH ×3 (05:19→20:40)
[2022-09-27] MEDS: GABAPENTIN 100MG CAPSULE PO SCH ×3 (05:19→20:40)
[2022-09-27] MEDS: BLOOD SUGAR DIAGNOSTIC STRIP TEST SCH ×4 (05:20→20:40)
[2022-09-27] MEDS: TRAMADOL 50MG TABLET PO PRN (05:20)
[2022-09-27] MEDS: INSULIN LISPRO 100 UNITS/ML SUBCUT SCH ×4 (05:43→20:41)
[2022-09-27 06:02] LABS: CHLORIDE 100 mEq/L (98-107)
[2022-09-27] MEDS: FAMOTIDINE 20MG TABLET PO SCH ×2 (08:40→20:40)
[2022-09-27] MEDS: TAMSULOSIN HCL 0.4MG SR CAPSULE PO SCH (08:40)
[2022-09-27] MEDS ORDERED: VANCOMYCIN 1500MG in DEXTROSE 5% WATER 250ML IV SCH (10:00)
[2022-09-27] MEDS: ENOXAPARIN 40MG/0.4ML SYR SUBCUT SCH (16:53)
== END 2022-09-27 21:33 | DRG 871 ==
LOC: ER 15:37 → MICUNO 19:02 → EDBEDREQ 19:18 → ENRESERV 22:03 → 7EST 09-25 21:36
PROVIDERS: ADMIT Internal Medicine; ATTEND Internal Medicine
DX: A41.81 Sepsis due to Enterococcus (principal); J96.00 Acute respiratory failure, unspecified whether with hypoxia or hypercapnia; E11.9 Type 2 diabetes mellitus without complications; D64.9 Anemia, unspecified; G20 Parkinson's disease; Z20.822 Contact with and (suspected) exposure to COVID-19; I11.0 Hypertensive heart disease with heart failure; I50.9 Heart failure, unspecified; R07.89 Other chest pain; N43.3 Hydrocele, unspecified; I25.10 Atherosclerotic heart disease of native coronary artery without angina pectoris; N40.0 Benign prostatic hyperplasia without lower urinary tract symptoms; F17.210 Nicotine dependence, cigarettes, uncomplicated; Z86.73 Personal history of transient ischemic attack (TIA), and cerebral infarction without residual deficits; Z95.1 Presence of aortocoronary bypass graft; Z95.2 Presence of prosthetic heart valve; Z74.01 Bed confinement status
CPT/HCPCS: 36415; 71045; 74176; 80048; 80053; 80202; 80305; 81003; 82553; 82962; 83036; 83605; 83880; 84145; 84484; 85025; 85027; 87077; 87186; 87426; 93005; 93306; 97162; 99291; A6261; C9113; J0692; J1650; J1815; J3370; J7030; J7060; A4315

== ENCOUNTER 2022-11-20 18:10 | Inpatient (IN) | payer MEDICARE, MEDICAID ==
[~2022-11-20] VITALS: Ht 185.4 cm; Wt 85.4 kg
[~2022-11-20 18:10] MED LIST changes: +POTA-354 PO; -POTA-79 PO
[2022-11-20 19:48] LABS: BASOPHILS % 0.6 % (0.0-2.0); EOSINOPHILS % 3.2 % (0.0-5.0); HEMATOCRIT. 31.1 % (42.0-52.0); LYMPHOCYTES % 15.7 % (20.0-50.0); MEAN CORPUSCULAR HEMOGLOBIN 26.1 pg (28.0-32.0); MEAN CORPUSCULAR VOLUME 80.8 fL (80.0-94.0); MEAN PLATELET VOLUME 7.4 fl (7.4-10.4); MONOCYTES % 7.7 % (2.0-8.0); NEUTROPHILS % 72.8 % (40.0-76.0); PLATELET 215 x1000/uL (130-400); RED BLOOD CELL COUNT 3.85 mill/uL (4.7-6.1); RED CELL DISTRIBUTION WIDTH 17.4 % (11.6-14.6)
[2022-11-20 19:54] LABS: CHLORIDE 102 mEq/L (98-107)
[2022-11-20 19:56] LABS: INR 1.1; PROTHROMBIN TIME 11.8 sec (9.6-11.0)
[2022-11-20 20:05] LABS: CREATINE KINASE 446 IU/L (39-308); ETHANOL BLOOD < 10 mg/dL
[2022-11-20] MEDS ORDERED: IOHEXOL-350 100 ML BOTTLE ONE (21:42)
[2022-11-20] MEDS ORDERED: HYDROCODONE/ACETAMINOPHEN 5/325MG TABLET PO ONE (23:15)
[2022-11-21 00:15] LABS: CLARITY URINE CLEAR (CLEAR); COLOR URINE DARK YELLOW (YELLOW); KETONES URINE TRACE (NEGATIVE); LEUKOCYTE ESTERASE URINE 1+ (NEGATIVE); NITRITE URINE NEGATIVE (NEGATIVE); OCCULT BLOOD URINE NEGATIVE (NEGATIVE); PH URINE 6.5 (4.5-8.0); PROTEIN URINE TRACE (NEGATIVE); SPECIFIC GRAVITY URINE 1.044 (1.005-1.030)
[2022-11-21 00:29] LABS: *AMPHETAMINES SCREEN URINE NEGATIVE (NEGATIVE); *BARBITURATES SCREEN URINE NEGATIVE (NEGATIVE); *BENZODIAZEPINES SCREEN URINE NEGATIVE (NEGATIVE); *COCAINE SCREEN URINE NEGATIVE (NEGATIVE); CANNABINOID URINE SCREEN NEGATIVE (NEGATIVE); METHADONE URINE SCREEN NEGATIVE (NEGATIVE); OPIATES URINE SCREEN NEGATIVE (NEGATIVE); PHENCYCLIDINE URINE SCREEN NEGATIVE (NEGATIVE)
[2022-11-21 01:00] VITALS: BP 104/68
[2022-11-21] MEDS: SODIUM CHLORIDE 0.9% 1,000 ML IV SCH ×2 (03:32→22:30)
[2022-11-21 04:00] VITALS: BP 105/54
[2022-11-21 06:06] LABS: BASOPHILS % 0.6 % (0.0-2.0); EOSINOPHILS % 0.6 % (0.0-5.0); HEMATOCRIT. 29.3 % (42.0-52.0); HEMOGLOBIN. 9.7 g/dL (14.0-18.0); LYMPHOCYTES % 19.1 % (20.0-50.0); MEAN CORPUSCULAR HEMOGLOBIN 26.3 pg (28.0-32.0); MEAN CORPUSCULAR VOLUME 79.8 fL (80.0-94.0); MEAN PLATELET VOLUME 7.8 fl (7.4-10.4); MONOCYTES % 6.9 % (2.0-8.0); NEUTROPHILS % 72.8 % (40.0-76.0); PLATELET 220 x1000/uL (130-400); RED BLOOD CELL COUNT 3.67 mill/uL (4.7-6.1); RED CELL DISTRIBUTION WIDTH 17.1 % (11.6-14.6)
[2022-11-21 06:53] LABS: CHLORIDE 103 mEq/L (98-107)
[2022-11-21 08:00] VITALS: BP 123/75
[2022-11-21] MEDS ORDERED: ENOXAPARIN 30MG/0.3ML SYR SUBCUT SCH (09:00)
[2022-11-21] MEDS ORDERED: ENOXAPARIN 40MG/0.4ML SYR SUBCUT SCH (09:00)
[2022-11-21] MEDS ORDERED: ONDANSETRON HCL 4MG/2ML INJ IV PRN (10:45)
[2022-11-21] MEDS ORDERED: NALOXONE HCL 0.4MG/ML VIAL IV PRN (10:45)
[2022-11-21] MEDS ORDERED: CLONIDINE 0.1MG TABLET PO PRN (10:45)
[2022-11-21] MEDS ORDERED: ACETAMINOPHEN 325MG TABLET PO PRN (10:45)
[2022-11-21] MEDS: TAMSULOSIN HCL 0.4MG SR CAPSULE PO SCH (11:18)
[2022-11-21 12:00] VITALS: BP 124/64
[2022-11-21] MEDS: CEFTRIAXONE 1,000 MG in DEXTROSE 5% WATER 50 ML IV SCH (13:05)
[2022-11-21] MEDS: CARBIDOPA/LEVODOPA 25/100MG TABLET PO SCH ×2 (13:15→16:44)
[2022-11-21] MEDS: GABAPENTIN 100MG CAPSULE PO SCH ×2 (13:15→16:45)
[2022-11-21 16:00] VITALS: BP 120/67
[2022-11-21 16:44] LABS: CREATINE KINASE MB FRACTION 11.5 ng/mL (0.5-3.6)
[2022-11-21] MEDS: FUROSEMIDE 20MG TABLET PO SCH (16:44)
[2022-11-21 19:49] LABS: T4 FREE 1.24 ng/dL (0.76-1.46)
[2022-11-21 20:00] VITALS: BP 109/66
[2022-11-21 20:03] LABS: VITAMIN B12 SERUM 531 pg/mL (211-911)
[2022-11-21] MEDS: CARVEDILOL 3.125 MG TABLET PO SCH (20:57)
[2022-11-22] VITALS (9 sets, daily range): BP systolic 104–185; BP diastolic 62–98
[2022-11-22] MEDS: FUROSEMIDE 20MG TABLET PO SCH ×2 (06:17→17:30)
[2022-11-22] MEDS: GABAPENTIN 100MG CAPSULE PO SCH ×4 (08:28→17:30)
[2022-11-22] MEDS: CARBIDOPA/LEVODOPA 25/100MG TABLET PO SCH ×4 (08:28→17:30)
[2022-11-22] MEDS: ENOXAPARIN 40MG/0.4ML SYR SUBCUT SCH (08:29)
[2022-11-22] MEDS: CARVEDILOL 3.125 MG TABLET PO SCH ×3 (08:31→21:21)
[2022-11-22] MEDS: TAMSULOSIN HCL 0.4MG SR CAPSULE PO SCH ×2 (08:32→09:00)
[2022-11-22 10:43] LABS: BASOPHILS % 0.3 % (0.0-2.0); EOSINOPHILS % 1.7 % (0.0-5.0); HEMATOCRIT. 31.9 % (42.0-52.0); HEMOGLOBIN. 10.5 g/dL (14.0-18.0); LYMPHOCYTES % 14.6 % (20.0-50.0); MEAN CORPUSCULAR HEMOGLOBIN 26.6 pg (28.0-32.0); MEAN CORPUSCULAR VOLUME 80.8 fL (80.0-94.0); MEAN PLATELET VOLUME 7.4 fl (7.4-10.4); NEUTROPHILS % 75.4 % (40.0-76.0); PLATELET 224 x1000/uL (130-400); RED BLOOD CELL COUNT 3.95 mill/uL (4.7-6.1); RED CELL DISTRIBUTION WIDTH 17.1 % (11.6-14.6)
[2022-11-22 11:16] LABS: CHLORIDE 102 mEq/L (98-107)
[2022-11-22 11:25] LABS: CREATINE KINASE 758 IU/L (39-308); CREATINE KINASE MB FRACTION 6.8 ng/mL (0.5-3.6)
[2022-11-22] MEDS: CEFTRIAXONE 1,000 MG in DEXTROSE 5% WATER 50 ML IV SCH (11:33)
[2022-11-22] MEDS: SODIUM CHLORIDE 0.9% 1,000 ML IV SCH (17:30)
[2022-11-22] MEDS: HYDROCODONE/ACETAMINOPHEN 5/325MG TABLET PO PRN (21:20)
[2022-11-23] VITALS: BP 114/60
[2022-11-23 04:00] VITALS: BP 115/70
[2022-11-23 08:00] VITALS: BP 142/90
[2022-11-23] MEDS: FUROSEMIDE 20MG TABLET PO SCH (09:35)
[2022-11-23] MEDS: GABAPENTIN 100MG CAPSULE PO SCH ×2 (09:35→13:19)
[2022-11-23] MEDS: CARVEDILOL 3.125 MG TABLET PO SCH (09:36)
[2022-11-23] MEDS: CARBIDOPA/LEVODOPA 25/100MG TABLET PO SCH ×2 (09:36→13:19)
[2022-11-23] MEDS: TAMSULOSIN HCL 0.4MG SR CAPSULE PO SCH (09:36)
[2022-11-23] MEDS: ENOXAPARIN 40MG/0.4ML SYR SUBCUT SCH (09:37)
[2022-11-23] MEDS: HYDROCODONE/ACETAMINOPHEN 5/325MG TABLET PO PRN (09:37)
[2022-11-23] MEDS: CEFTRIAXONE 1,000 MG in DEXTROSE 5% WATER 50 ML IV SCH (11:34)
[2022-11-23 12:00] VITALS: BP 100/54
[2022-11-23] MEDS: SODIUM CHLORIDE 0.9% 1,000 ML IV SCH (13:19)
[2022-11-23 15:19] VITALS: BP 100/54
[2022-11-23 16:00] VITALS: BP 111/61
== END 2022-11-23 18:05 | DRG 871 ==
LOC: ER 18:10 → EDBEDREQ 22:01 → 7EST 11-21 00:53 → UNDOADMIN 11-21 01:15 → MICUSO 11-21 01:15 → 7EST 11-21 02:47 → MICUSO 11-21 02:47
PROVIDERS: ADMIT Internal Medicine; ATTEND Internal Medicine
DX: A41.50 Gram-negative sepsis, unspecified (principal); G92.8 Other toxic encephalopathy; J18.9 Pneumonia, unspecified organism; I50.30 Unspecified diastolic (congestive) heart failure; N39.0 Urinary tract infection, site not specified; D64.9 Anemia, unspecified; I11.0 Hypertensive heart disease with heart failure; N40.0 Benign prostatic hyperplasia without lower urinary tract symptoms; E11.9 Type 2 diabetes mellitus without complications; G20 Parkinson's disease; I25.10 Atherosclerotic heart disease of native coronary artery without angina pectoris; I65.22 Occlusion and stenosis of left carotid artery; I44.0 Atrioventricular block, first degree; F02.80 Dementia in other diseases classified elsewhere, unspecified severity, without behavioral disturbance, psychotic disturbance, mood disturbance, and anxiety; Z79.84 Long term (current) use of oral hypoglycemic drugs; Z95.1 Presence of aortocoronary bypass graft; Z79.899 Other long term (current) drug therapy; Z86.73 Personal history of transient ischemic attack (TIA), and cerebral infarction without residual deficits; Z87.891 Personal history of nicotine dependence; Z95.0 Presence of cardiac pacemaker; Z95.2 Presence of prosthetic heart valve; Z79.82 Long term (current) use of aspirin; Z74.01 Bed confinement status
CPT/HCPCS: 36415; 70496; 70498; 71045; 80048; 80053; 80305; 80320; 81003; 82140; 82550; 82553; 82607; 82746; 83036; 83605; 83880; 84439; 84443; 84481; 84484; 85025; 87186; 90935; 93005; 93306; 93970; 97162; 99285; J0696; J1650; J7030; J7060; Q9967; G0480